=== PATIENT | male | born 1985 | race Asian ===

== ENCOUNTER 2017-05-10 19:51 | Emergency (ER) | payer MEDICAID, OTHER ==
[~2017-05-10] VITALS: Ht 175.3 cm; Wt 83.9 kg
--- NOTE | 2017-05-10 20:02 | NUR ---
PT AMBULATORY TO ER BED 12N C/O L SIDED CHEST PAIN DESCRIBING IT PRESSURE R/T L SHOULDER SINCE THIS AM. GOWNED AND PLACED ON MONITOR. NAD NOTED. AWAITING MD DUNCAN.
--- NOTE | 2017-05-10 20:24 | NUR ---
DR COCHRAN AT BEDSIDE FOR EVAL.
--- NOTE | 2017-05-10 20:29 | NUR ---
CERTIFIED PEST CONTROL TECHNICIAN AT BEDSIDE FOR BLOOD DRAW.
[2017-05-10 20:38] LABS: BASOPHILS % (AUTO) 0.9 % (0.0-2.0); EOSINOPHILS # (AUTO) 0.1 /CMM (0.0-0.7); EOSINOPHILS % (AUTO) 2.7 % (0.0-6.0); HEMATOCRIT 42 % (39-51); HEMOGLOBIN 14.9 g/dL (13.5-17.5); LYMPHOCYTES # (AUTO) 0.9 /CMM (0.8-4.8); MEAN CORPUSCULAR HEMOGLOBIN 30 PG (26.0-33.0); MEAN CORPUSCULAR HGB CONC 35 g/dl (31.0-36.0); MEAN CORPUSCULAR VOLUME 84 fL (80-96); MONOCYTES % (AUTO) 17.3 % (2.0-12.0); NEUTROPHILS # (AUTO) 3.6 /CMM (1.8-8.9); NEUTROPHILS % (AUTO) 62.1 % (43.0-81.0); PLATELET COUNT (AUTO) 316 /CMM (150-450); RDW COEFFICIENT OF VARIATION 11.8 (11.5-15.0); RED BLOOD CELL COUNT(AUTO) 5.02 MIL/uL (4.5-6.0); WHITE BLOOD COUNT (AUTO) 5.6 K/uL (4.3-11.0)
[2017-05-10 20:43] LABS: CALCIUM, SERUM 8.6 mg/dL (8.5-10.1); CREATININE 1.1 mg/dL (0.6-1.3); POTASSIUM 3.4 mmol/L (3.5-5.1)
--- NOTE | 2017-05-10 20:50 | NUR ---
RADIOLOGY AT BEDSIDE FOR CHEST XRAY.
[2017-05-10 20:51] LABS: TROPONIN I 0.043 ng/mL (0.00-0.056)
[2017-05-10 20:54] LABS: BAND % (MANUAL) 1 % (0.0-5.0); BASOPHILS % (MANUAL) 1 % (0.0-2.0); EOSINOPHILS % (MANUAL) 3 % (0-4); LYMPHOCYTES % (MANUAL) 20 % (16-48); MONOCYTES % (MANUAL) 14 % (0-11.0); NEUTROPHILS % (MANUAL) 61 (42-76)
[2017-05-10 20:59] LABS: INR 0.88 (0.87-1.13); PROTHROMBIN TIME 9.2 SECS (9.5-12.7)
[2017-05-10 21:25] VITALS: BP 142/84
--- NOTE | 2017-05-10 21:25 | NUR ---
Patient discharged to home in stable condition. Written and verbal after care instructions given. Patient verbalizes understanding of instruction.
== END 2017-05-10 21:26 | disposition home or self-care (01) ==
LOC: ER 20:01
DX: R07.9 Chest pain, unspecified (principal); R11.0 Nausea; R05 Cough
CPT/HCPCS: 36415; 71010; 80048; 84484; 85025; 85730; 93005; 99285; A4606; Z7610